=== PATIENT | male | born 1995 | race African-American/Black ===

== ENCOUNTER 2017-05-03 06:26 | Emergency (ER) | payer BC ==
[~2017-05-03] VITALS: Ht 182.9 cm; Wt 86.2 kg
[2017-05-03 07:54] LABS: URINE SOURCE CLEAN CATCH
[2017-05-03 08:03] LABS: URINE APPEARANCE CLEAR; URINE BILIRUBIN NEG (NEG); URINE BLOOD NEG (NEG); URINE COLOR YELLOW; URINE GLUCOSE NEG (NEG); URINE KETONE TRACE (NEG); URINE LEUKOCYTE ESTERASE TRACE (NEG); URINE NITRATE NEG (NEG); URINE PROTEIN NEG (NEG); URINE SPECIFIC GRAVITY 1.033 (1.003-1.035)
[2017-05-03 08:06] LABS: URBCS1 AUWI 0-2 /[HPF] (0-2); URINE BACTERIA AUWI NEG (NEGATIVE); URINE SQUAMOUS EPITHELIAL CELL NONE SEEN /[HPF]
[2017-05-03 08:08] LABS: CULTURE INDICATED? NO
[2017-05-06 16:51] LABS: CHLAMYDIA TRACH Not Detected (Not Detected); N GONOR Not Detected (Not Detected)
== END 2017-05-03 08:52 | disposition home or self-care (01) ==
LOC: CED 06:26
PROVIDERS: Emergency Medicine; Nurse Practitioner
DX: Z20.2 Contact with and (suspected) exposure to infections with a predominantly sexual mode of transmission (principal); Z88.0 Allergy status to penicillin
CPT/HCPCS: 81003; 87491; 87591; 96372; 99283; J0696